=== PATIENT | female | born 1985 | race Caucasian/White ===

== ENCOUNTER 2018-01-09 07:57 | Outpatient (CLI) | payer MEDICAID | END 2018-01-09 10:30 | disposition home or self-care (01) | LOC: OBT 07:57 → L-D 07:57 → OBT 10:30 | DX: O62.9 Abnormality of forces of labor, unspecified (principal); Z3A.37 37 weeks gestation of pregnancy | CPT/HCPCS: 76818 ==

== ENCOUNTER 2018-01-25 14:51 | Inpatient (IN) | payer MEDICAID ==
[2018-01-25] MEDS: LACTATED RINGER'S 1,000 ML IV (16:28)
[2018-01-25] MEDS ORDERED: IBUPROFEN 600 MG TAB PO (16:30)
[2018-01-25] MEDS ORDERED: OXYTOCIN 30 UNITS/LR 500 ML IV ×2 (16:30)
[2018-01-25] MEDS ORDERED: CARBOPROST 250 MCG INJ IM (16:30)
[2018-01-25] MEDS ORDERED: MISOPROSTOL 200 MCG TAB PR (16:30)
[2018-01-25] MEDS ORDERED: LIDOCAINE 1% (MPF) 30 ML INJ INJ (16:30)
[2018-01-25] MEDS: MISOPROSTOL 25 MCG CAPSULE PO ×2 (16:52→22:08)
[2018-01-25 17:00] LABS: ADD MAN DIFF? NO
[2018-01-25 17:03] LABS: WHITE BLOOD COUNT 7.5 10^3/ul (4.8-10.8)
[2018-01-25 17:03] LABS: BASOPHILS % 0.3 % (0.0-2.0); EOSINOPHILS # 0.1 10^3/ul (0.0-0.5); EOSINOPHILS % 1.7 % (0.0-7.0); HEMATOCRIT 37.9 % (37.0-47.0); HEMOGLOBIN 12.6 g/dl (12.0-16.0); LYMPHOCYTES # 1.8 10^3/ul (0.8-2.9); LYMPHOCYTES % 23.3 % (15.0-51.0); MEAN CORPUSCULAR HEMOGLOBIN 30.4 pg (29.0-33.0); MEAN CORPUSCULAR HGB CONC 33.2 g/dl (32.0-37.0); MEAN CORPUSCULAR VOLUME 91.3 fl (82.0-101.0); MEAN PLATELET VOLUME 10.5 fl (7.4-10.4); MONOCYTE # 0.5 10^3/ul (0.3-0.9); MONOCYTES % 6.8 % (0.0-11.0); NEUTROPHIL # 5.1 10^3/ul (1.6-7.5); NEUTROPHILS % 67.5 % (39.0-77.0); PLATELET COUNT 270 10^3/UL (140-415); RED BLOOD COUNT 4.15 10^6/ul (4.20-5.40); RED CELL DISTRIBUTION WIDTH 14.1 % (11.5-14.5)
[2018-01-25 17:21] LABS: PROTIME 12.2 Sec (11.9-14.9)
[2018-01-25 17:22] LABS: PARTIAL THROMBOPLASTIN TIME 27.5 Sec (25.0-35.0)
[2018-01-25 17:54] LABS: HEPATITIS B SURFACE ANTIGEN NEGATIVE (NEGATIVE)
[2018-01-26] MEDS: LACTATED RINGER'S 1,000 ML IV ×4 (01:10→23:16)
[2018-01-26] MEDS: MISOPROSTOL 25 MCG CAPSULE PO ×3 (02:27→23:15)
[2018-01-26] MEDS: BUTORPHANOL 2 MG INJ IV (02:34)
[2018-01-26 21:22] LABS: RAPID PLASMA REAGIN NONREACTIVE (NR)
[2018-01-27] MEDS: MISOPROSTOL 25 MCG CAPSULE PO ×2 (03:09→08:37)
[2018-01-27] MEDS: LACTATED RINGER'S 1,000 ML IV ×3 (05:00→19:17)
[2018-01-27] MEDS ORDERED: OXYTOCIN 30 UNITS/LR 500 ML IV (15:30)
[2018-01-27] MEDS: OXYTOCIN 30 UNITS/LR 500 ML IV (15:45)
[2018-01-28] MEDS: LACTATED RINGER'S 1,000 ML IV ×3 (01:27→13:15)
[2018-01-28] MEDS ORDERED: FENTAnyl 2MCG/ML-ROPIV 0.2% 100 ML (11:09)
[2018-01-28] MEDS ORDERED: FENTAnyl 2MCG/ML-ROPIV 0.2% 100 ML BAG EPI (13:30)
[2018-01-28] MEDS ORDERED: NALOXONE (0.4 MG/ML) INJ IV (13:30)
[2018-01-28] MEDS ORDERED: DIPHENHYDRAMINE 50 MG INJ IV ×2 (13:30→19:00)
[2018-01-28] MEDS: METHYLERGONOVINE 0.2 MG INJ IM (16:09)
[2018-01-28] MEDS: OXYTOCIN 30 UNITS/LR 500 ML IV (16:35)
[2018-01-28] MEDS: ONDANSETRON 4 MG INJ IV (17:31)
[2018-01-28] MEDS: LACTATED RINGER'S 1,000 ML IV* (18:59)
[2018-01-28] MEDS: DEXTROSE 5%-LR 1,000 ML IV (18:59)
[2018-01-28] MEDS ORDERED: MISOPROSTOL 200 MCG TAB PR (19:00)
[2018-01-28] MEDS ORDERED: BENZOCAINE 20% 56 ML SPRAY TOP (19:00)
[2018-01-28] MEDS ORDERED: OXYCODONE/ASPIRIN (4.88/325) TAB PO (19:00)
[2018-01-28] MEDS ORDERED: CARBOPROST 250 MCG INJ IM (19:00)
[2018-01-28] MEDS ORDERED: WITCH HAZEL/GLYCERIN PAD PR (19:00)
[2018-01-28] MEDS ORDERED: ZOLPIDEM 5 MG TAB PO (19:00)
[2018-01-28] MEDS ORDERED: OXYTOCIN 30 UNITS/LR 500 ML IV (19:00)
[2018-01-28] MEDS ORDERED: DIBUCAINE 1% 30 GM OINT PR (19:00)
[2018-01-28] MEDS ORDERED: ACETAMINOPHEN 325 MG TAB PO (19:00)
[2018-01-28] MEDS ORDERED: ONDANSETRON 4 MG INJ IV (19:00)
[2018-01-28] MEDS ORDERED: METHYLERGONOVINE 0.2 MG INJ IM (19:00)
[2018-01-28] MEDS: MAGNESIUM HYDROXIDE 30ML CUP PO (19:22)
[2018-01-29] MEDS: IBUPROFEN 600 MG TAB PO ×4 (00:25→17:55)
[2018-01-29] MEDS: DEXTROSE 5%-LR 1,000 ML IV (02:59)
[2018-01-29] MEDS: LACTATED RINGER'S 1,000 ML IV* (02:59)
[2018-01-29] MEDS: LANOLIN 7 GM TUBE TOP (05:52)
[2018-01-29 06:51] LABS: ADD MAN DIFF? NO
[2018-01-29 06:56] LABS: WHITE BLOOD COUNT 13.9 10^3/ul (4.8-10.8)
[2018-01-29 06:56] LABS: BASOPHILS % 0.2 % (0.0-2.0); EOSINOPHILS # 0.1 10^3/ul (0.0-0.5); EOSINOPHILS % 0.7 % (0.0-7.0); HEMATOCRIT 32.6 % (37.0-47.0); HEMOGLOBIN 10.8 g/dl (12.0-16.0); LYMPHOCYTES # 2.3 10^3/ul (0.8-2.9); LYMPHOCYTES % 16.8 % (15.0-51.0); MEAN CORPUSCULAR HEMOGLOBIN 30.5 pg (29.0-33.0); MEAN CORPUSCULAR HGB CONC 33.1 g/dl (32.0-37.0); MEAN CORPUSCULAR VOLUME 92.1 fl (82.0-101.0); MEAN PLATELET VOLUME 10.8 fl (7.4-10.4); NEUTROPHIL # 10.4 10^3/ul (1.6-7.5); NEUTROPHILS % 74.8 % (39.0-77.0); PLATELET COUNT 189 10^3/UL (140-415); RED BLOOD COUNT 3.54 10^6/ul (4.20-5.40); RED CELL DISTRIBUTION WIDTH 14.3 % (11.5-14.5)
[2018-01-29] MEDS: SENNA/DOCUSATE NA (8.6MG/50MG) TAB PO (12:52)
[2018-01-30] MEDS: IBUPROFEN 600 MG TAB PO ×3 (00:14→12:33)
[2018-01-30] MEDS ORDERED: MEASLES,MUMPS,RUBELLA VACCINE INJ SC* (09:00)
[2018-01-30] MEDS: DIPHTH/TET/ACEL PERTUSS (ADULT) 0.5 ML VIAL IM* (09:00)
[2018-01-30] MEDS: SENNA/DOCUSATE NA (8.6MG/50MG) TAB PO (12:38)
== END 2018-01-30 18:18 | disposition home or self-care (01) | DRG 775 ==
LOC: PP1 01-28 08:03 → L-D 14:51
PROVIDERS: Specialist
PROC: 10E0XZZ Delivery of Products of Conception, External Approach (ICD-10-PCS; principal; 2018-01-28)
PROC: 3E033VJ Introduction of Other Hormone into Peripheral Vein, Percutaneous Approach (ICD-10-PCS; 2018-01-28)
DX: O48.0 Post-term pregnancy (principal); Z3A.41 41 weeks gestation of pregnancy; Z37.0 Single live birth
CPT/HCPCS: 62319; 76815; 85025; 85610; 85730; 86592; 86850; 86900; 86901; 87340